=== PATIENT | female | born 1990 | race Caucasian/White ===

== ENCOUNTER 2023-01-27 05:28 | Inpatient (IN) | payer BC ==
[2023-01-26 11:44] LABS: Hematocrit 36.4 % (34.9-44.5); Hemoglobin 12.7 g/dL (12.0-15.5); Platelet Count 176 10x3/uL (150-450)
[2023-01-26 12:12] LABS: Syphilis Antibody Nonreactive (Nonreactive); Syphilis Antibody Index 0.03 S/CO (<1.00 Non-Reactive)
[2023-01-26 12:13] LABS: HBSAg Index 0.19 S/CO (0-0.99); Hep B Surf Ag Non-Reactive S/CO (NonReactive)
[2023-01-26 12:27] LABS: SARS-CoV-2 NAA Rapid Test Not Detected (NotDetected)
[2023-01-27] MEDS ORDERED: Misoprostol 200 MCG TAB PR PRN (05:42)
[2023-01-27] MEDS ORDERED: Bicitra 30 ML UDCUP PO PRN (05:42)
[2023-01-27] MEDS ORDERED: Carboprost 250 MCG/ML AMP IM PRN (05:42)
[2023-01-27] MEDS ORDERED: Ondansetron PF 4 MG/2 ML Vial IVP PRN ×4 (05:42→09:52)
[2023-01-27] MEDS ORDERED: hydrALAZINE 20 MG/ML VIAL SLOW IVP PRN ×2 (05:42→11:57)
[2023-01-27] MEDS ORDERED: CEFAZOLIN 2 GM in Sodium Chloride 0.9% 100 ML IVPB SCH (05:42)
[2023-01-27] MEDS ORDERED: Oxytocin 30 units/NS 500 ML 500 ML IV SCH (05:42)
[2023-01-27] MEDS ORDERED: Lactated Ringer's 1,000 ML IV SCH (05:42)
[2023-01-27] MEDS ORDERED: Famotidine/PF 20 mg/2ml Vial SLOW IVP PRN (05:42)
[2023-01-27] MEDS ORDERED: Promethazine HCl 25 MG/ML VIAL IM PRN ×3 (05:42→09:52)
[2023-01-27] MEDS ORDERED: Diphenoxylate HCl/Atropine Tablet PO PRN ×2 (05:42)
[2023-01-27 05:53] VITALS: BMI 26.6
[2023-01-27] MEDS ORDERED: Morphine PF 10 MG/10 ML VIAL ONE (07:18)
[2023-01-27] MEDS ORDERED: Dexmedetomidine 200 MCG/2 ML VIAL ONE (07:18)
[2023-01-27] MEDS ORDERED: Phenylephrine 40 MG/NS 250 ML 250 ML ONE (07:20)
[2023-01-27] MEDS ORDERED: PHENYLEPHRINE-NS 100 MCG/ML 10 ML SYRINGE ONE (07:20)
[2023-01-27] MEDS ORDERED: Oxytocin 10 UNITS/ML VIAL ONE (07:20)
[2023-01-27] MEDS ORDERED: Ondansetron PF 4 MG/2 ML Vial ONE (07:23)
[2023-01-27] MEDS ORDERED: ePHEDrine Sulfate 50 MG/10 ML VIAL ONE (07:40)
[2023-01-27] MEDS ORDERED: Metoclopramide HCl 10 MG/2 ML VIAL ONE (07:48)
[2023-01-27] MEDS ORDERED: Dexamethasone 4 mg/ml Vial ONE (07:48)
[2023-01-27] MEDS ORDERED: Promethazine HCl 25 MG SUPP PR PRN ×2 (08:13→09:52)
[2023-01-27] MEDS ORDERED: Naloxone HCl 0.4 mg/ml Vial IVP PRN ×4 (08:13→09:52)
[2023-01-27] MEDS ORDERED: Moisturizing Cream (Eucerin) 113 GM JAR TOP PRN ×2 (08:13→09:52)
[2023-01-27] MEDS ORDERED: Naloxone HCl 0.4 mg/ml Vial IV PRN ×2 (08:13→09:52)
[2023-01-27] MEDS ORDERED: diphenhydrAMINE 50 MG/ML VIAL IVP PRN ×2 (08:13→09:52)
[2023-01-27] MEDS ORDERED: Ketorolac Tromethamine 30 MG/ML VIAL IVP PRN (08:13)
[2023-01-27] MEDS ORDERED: Communication Order-Pharmacy FS SCH ×2 (08:15→10:00)
[2023-01-27] MEDS ORDERED: Meperidine HCl/PF 25 MG/ML VIAL SLOW IVP PRN (09:52)
[2023-01-27] MEDS ORDERED: fentaNYL 50 mcg/mL 1 mL Vial SLOW IVP PRN (09:52)
[2023-01-27] MEDS ORDERED: Ketorolac Tromethamine 30 MG/ML VIAL IVP SCH (10:00)
[2023-01-27] MEDS ORDERED: Lanolin Ointment 7 GM TUBE TOP PRN (11:57)
[2023-01-27] MEDS ORDERED: Bisacodyl 10 MG SUPP PR PRN (11:57)
[2023-01-27] MEDS ORDERED: Acetaminophen 325 MG TAB PO PRN (11:57)
[2023-01-27] MEDS ORDERED: Boostrix 0.5 ML (Tdap) VIAL (>/=7 yrs of age) IM ONE (11:57)
[2023-01-27] MEDS ORDERED: diphenhydrAMINE 25 MG CAP PO PRN (11:57)
[2023-01-27] MEDS: Ketorolac Tromethamine 30 MG/ML VIAL IVP PRN ×2 (16:30→22:32)
[2023-01-27] MEDS ORDERED: HYDROcodone/Acetaminophen 5/325 mg Tablet PO PRN (22:00)
[2023-01-27] MEDS: Docusate 100 MG CAP PO SCH (22:32)
[2023-01-27] MEDS: Simethicone Chewable 80 MG TAB PO PRN (22:39)
[2023-01-28] MEDS: Simethicone Chewable 80 MG TAB PO PRN ×5 (02:41→21:01)
[2023-01-28 04:12] LABS: Hematocrit 26.7 % (34.9-44.5); Hemoglobin 9.5 g/dL (12.0-15.5); Mean Corpuscular HGB CONC 35.6 g/dL (32.0-36.0); Mean Corpuscular Hemoglobin 32.2 pg (27.0-33.0); Mean Corpuscular Volume 90.5 fl (81.6-98.3); Mean Platelet Volume 10.4 fl (7.4-10.4); Platelet Count 144 10x3/uL (150-450); RBC Distribution Width 13.3 % (11.5-14.5); Red Blood Cell (RBC) Count 2.95 10x6/uL (3.90-5.03)
[2023-01-28] MEDS: Ketorolac Tromethamine 30 MG/ML VIAL IVP PRN (04:32)
[2023-01-28] MEDS: HYDROcodone/Acetaminophen 5/325 mg Tablet PO PRN ×4 (08:23→21:01)
[2023-01-28] MEDS: Prenatal Vitamin 1 TAB PO SCH (08:23)
[2023-01-28] MEDS: Docusate 100 MG CAP PO SCH ×2 (08:23→21:01)
[2023-01-28] MEDS: Ibuprofen 800 MG TAB PO SCH ×2 (14:16→21:02)
[2023-01-29] MEDS: HYDROcodone/Acetaminophen 5/325 mg Tablet PO PRN ×3 (01:02→08:52)
[2023-01-29] MEDS: Simethicone Chewable 80 MG TAB PO PRN ×3 (01:02→08:53)
[2023-01-29] MEDS: Ibuprofen 800 MG TAB PO SCH ×2 (05:04→12:26)
[2023-01-29 08:01] VITALS: BP 128/89; TEMP 97.9
[2023-01-29] MEDS: Prenatal Vitamin 1 TAB PO SCH (08:52)
[2023-01-29] MEDS: Docusate 100 MG CAP PO SCH (08:52)
== END 2023-01-29 12:45 | disposition home or self-care (01) | DRG 788 ==
LOC: CSHLD 05:28 → CSHPP 11:30
PROVIDERS: ADMIT Obstetrics & Gynecology; ATTEND Obstetrics & Gynecology
PROC: 10D00Z1 Extraction of Products of Conception, Low, Open Approach (ICD-10-PCS; principal; 2023-01-27)
DX: O34.211 Maternal care for low transverse scar from previous cesarean delivery (principal); Z3A.39 39 weeks gestation of pregnancy; Z37.0 Single live birth; Z79.899 Other long term (current) drug therapy; F41.9 Anxiety disorder, unspecified; O99.344 Other mental disorders complicating childbirth; O99.824 Streptococcus B carrier state complicating childbirth; N73.6 Female pelvic peritoneal adhesions (postinfective); O99.892 Other specified diseases and conditions complicating childbirth; Z20.822 Contact with and (suspected) exposure to COVID-19
CPT/HCPCS: 36415; 51702; 85014; 85018; 85027; 85049; 86780; 86850; 86900; 86901; 87340; J1100; J1885; J2274; J2405; J2590; J2765; J3490; U0002